=== PATIENT | female | born 1945 | race Caucasian/White ===

== ENCOUNTER 2016-05-24 | Outpatient (CLI) | payer OTHER | END 2016-05-24 08:51 | disposition critical access hospital (66) | CPT/HCPCS: A0425; A0429 ==

== ENCOUNTER 2016-05-24 09:02 | Emergency (ER) | payer OTHER ==
[2016-05-24] MEDS ORDERED: HYDROmorphone 1 MG/ML SYRINGE IVP STA ×3 (09:16→12:18)
[2016-05-24] MEDS ORDERED: ONDANSETRON 4 MG/2 ML VIAL IVP STA (09:16)
[2016-05-24] MEDS ORDERED: SODIUM CHLORIDE 0.9% 1,000 ML IV ONE ×2 (09:16→09:22)
[2016-05-24] MEDS ORDERED: HYDROmorphone 1 MG/ML SYRINGE ONE ×3 (09:22→12:21)
[2016-05-24] MEDS ORDERED: ONDANSETRON 4 MG/2 ML VIAL ONE (09:22)
[2016-05-24] MEDS ORDERED: IOPAMIDOL-300 100 ML VIAL IVP ONE (11:49)
== END 2016-05-24 14:15 | disposition left against medical advice (07) ==
DX: K85.90 Acute pancreatitis without necrosis or infection, unspecified (principal); Z53.29 Procedure and treatment not carried out because of patient's decision for other reasons; N28.1 Cyst of kidney, acquired; M79.1 Myalgia; E03.9 Hypothyroidism, unspecified; Z86.010 Personal history of colon polyps
CPT/HCPCS: 36415; 74174; 80053; 81001; 83690; 85025; 96361; 96374; 96375; 96376; 99284; J1170; Q9967